=== PATIENT | female | born 1980 | race African-American/Black ===

== ENCOUNTER 2016-10-21 19:51 | Emergency (ER) | payer OTHER ==
[~2016-10-21] VITALS: Ht 165.1 cm; Wt 63.5 kg
[2016-10-21 20:16] VITALS: BP 143/86
[2016-10-21] MEDS ORDERED: FISH OIL 1,0001 EAC2 PO (20:40)
[2016-10-21] MEDS ORDERED: ADVIL MIGRAINE200 M1 PO (20:40)
--- NOTE | 2016-10-21 20:49 | ED GI/GU/ABDOMINAL COMPLAINT ---
History of Present Illness General Chief Complaint: Female Urogenital Problems Stated Complaint: UTI PER PT Source: patient, old records Exam Limitations: no limitations Vital Signs & Intake/Output Vital Signs & Intake/Output Vital Signs Date Time Temp Pulse Resp B/P Pulse O2 O2 Flow FiO2 Ox Delivery Rate 10/22 2015 98.2 76 20 143/86 98 Room Air Allergies Coded Allergies: metronidazole (Intermediate, VOMITING 10/21/16) Reconcile Medications Ibuprofen (Advil Migraine) 200 MG CAPSULE 2 TAB PO PRN PAIN (Reported) [place]-3/Dha/Epa/Fish Oil (Fish Oil 1,000 MG Softgel) (Unknown Strength) CAPSULE (Unknown Dose) PO DAILY SUPPLEMENT (Reported) Phenazopyridine HCl (Pyridium) 200 MG TABLET 1 TAB PO TID dysuria Sulfamethoxazole/Trimethoprim (Bactrim Ds Tablet) 800 MG-160 MG TABLET 1 TAB PO BID uti Triage Note: RECEIVED 36 YO FEMALE C/O "I THINK I HAVE AN UTI" PT C/O PAIN WITH URINATION, SMALL AMOUNT OF BLOOD IN URINE?, AND URINE SMELLS. PT ALSO REPORTS PELVIC AREA DISCOMFORT. Triage Nurses Notes Reviewed? yes ? N Is pt currently ? No Onset: Gradual Duration: day(s): (3-4), constant Timing: recent history Quality/Severity: aching, cramping Severity Numbers: 5 Location: suprapubic Radiation: no radiation Activities at Onset: none Prior Abdominal Problems: similar symptoms No Modifying Factors: none Associated Symptoms: DENIES HPI: 36-year-old female no known medical history presents emergency room stating that she has a urinary tract infection complaint dysuria urgency frequency hematuria with malodorous urine over the past few days. Patient denies any vaginal bleeding or discharge no abdominal pain back pain nausea vomiting diarrhea no fever no chills. She's not sought care for the symptoms until today. She has not taken anything for her symptoms. Past History Travel History Traveled to [place] past 21 day No Medical History Any Pertinent Medical History? none Neurological: NONE EENT: NONE Cardiovascular: NONE Respiratory: NONE Gastrointestinal: NONE Hepatic: NONE Renal: NONE Musculoskeletal: NONE Psychiatric: NONE Endocrine: NONE Blood Disorders: NONE Cancer(s): NONE Surgical History Surgical History: none Psychosocial History What is your primary language Haitian Tobacco Use: Never used Family History Hx Contributory? No Review of Systems Review of Systems Constitutional: Reports: see HPI. All Other Systems: Reviewed and Negative Comments Review of systems: See HPI, All other systems negative. Constitutional, no chills no fever, no malaise HEENT: No visual changes no sore throat no congestion Cardiovascular: No chest pain , no palpitation , Skin, no rashes, no change in skin Respiratory: No dyspnea no cough no sputum GI: No nausea no vomiting, no diarrhea, no bloating/constipation : No dysuria No hematuria, no frequency, no discharge Muscle skeletal: No joint pain, no joint swelling, no back pain, no neck pain, Neurologic: no headache Psych: No stress . Heme/endocrine: No bruising no bleeding Immunology: No lymphadenopathy Physical Exam Physical Exam General Appearance: well developed/nourished, no apparent distress, alert, awake Gastrointestinal: normal bowel sounds, soft, non-tender Comments: Well-developed well-nourished person in no acute distress HEENT: Normal EENT exam; PERRL, EOMI, HEAD is atraumatic. moist mucous membranes. Neck: Supple, normal range of motion Back: Nontender, no CVA tenderness. Full range of motion Cardiovascular: Regular rate and rhythms no murmurs Respiratory: . No respiratory distress. Patient speaking in full complete sentences. Breath sounds clear to auscultation bilaterally: NO W/R/R Abdomen: Soft, nontender nondistended, no appreciable organomegaly. Normal bowel sounds. No rebound/guarding, Extremity: No edema, full range of motion of extremities Neuro: Alert oriented x3, motor sensory normal, There were no obvious focal neurologic abnormalities. Skin: No appreciable rash on exposed skin, skin is warm and dry. Psych: Mood and affect is normal, memory and judgment is normal. Core Measures ACS in differential dx? No Severe Sepsis Present: No Septic Shock Present: No Progress Differential Diagnosis: ectopic , intrauterine , kidney stone, perforated viscous, threatened AB, UTI/pyelo Plan of Care: Orders Procedure Date/time Status Add-on Test (ER Only) 10/21 2029 Active CULTURE,URINE 10/21 2009 Active URINE 10/22 1999 Complete URINALYSIS 10/22 1999 Complete Laboratory Tests 10/21/162009: Urinalysis MOD H, Urine Color YEL, Urine Clarity CLDY H, Urine pH 7.5, Ur Specific [place] 1.020, Urine Protein TRACE H, Urine Ketones TRACE H, Urine Nitrite POS H, Urine Bilirubin NEG, Urine Urobilinogen 1.0, Ur Leukocyte Esterase MOD H, Ur Microscopic SEDIMENT EXAMINED, Urine RBC 3-5, Urine WBC 25- 50 H, Ur Epithelial Cells MOD H, Urine Bacteria PACKD H, Urine Mucus MOD H, Urine Hemoglobin MOD H, Urine Glucose NEG, Urine Test NEGATIVE Microbiology 10/21 2009 URINE ROUT: Urine Culture - RECD I discussed with the patient at length all of their results. I had an extensive conversation regarding need for close follow up with their primary care physician this week as well as return precautions. I answered all of their questions, they feel comfortable with the plan and follow-up care. I discussed the medications that they will receive with the patient. I gave them signs and symptoms that could indicate an adverse reaction. I have advised them to limit their activities until they can see how they respond to the medication. (TIMMY LOWE,ANABELL) Initial ED EKG: none Departure Departure Time of Disposition: 2102 Disposition: HOME OR SELF CARE Condition: Stable Clinical Impression Primary Impression: UTI (urinary tract infection) Referrals: KYLAH JURADO,JOAN Figueroa (PCP/Family) Additional Instructions: Bactrim as directed, Pyridium as discussed Tylenol Motrin every 4-6 hours follow up with your primary care physician Monday return with any concerns these prescriptions were sent to [facility] pharmacy Departure Forms: Customer Survey General Discharge Information Prescriptions: Current Visit Scripts Sulfamethoxazole/Trimethoprim (Bactrim Ds Tablet) 1 TAB PO BID #6 TAB Phenazopyridine HCl (Pyridium) 1 TAB PO TID #9 TAB
[2016-10-21] MEDS ORDERED: BACTRIM DS TAB1 EACH PO (21:04)
[2016-10-21] MEDS ORDERED: PYRIDIUM200 M1 PO (21:04)
== END 2016-10-21 21:09 ==
LOC: ERH 19:51
DX: N39.0 Urinary tract infection, site not specified (principal)
CPT/HCPCS: 81001; 81025; 87086